=== PATIENT | male | born 1985 | race Caucasian/White ===

== ENCOUNTER 2017-01-26 08:53 | Outpatient (CLI) ==
[2013-01-31 22:28] VITALS: TEMP 97.8
[2016-02-19 08:32] VITALS: BMI 16.5
--- NOTE | 2017-01-26 09:43 | CT ---
EXAM: CT of the chest with IV contrast HISTORY: Abnormal chest x-ray COMPARISON: 01/20/2017 chest x-ray, 09/11/2013 CT, 05/17/2013 CT TECHNIQUE: CT of the chest with IV contrast FINDINGS: Multiple unchanged right lower lobe pulmonary nodules are again seen with the largest measuring 3 mm . There is an unchanged tiny right lower lobe posterior subpleural pulmonary nodule on axial image 2 4. A few unchanged probable perifissural lymph nodes are seen along the left major fissure. No new p ulmonary nodules are identified. No focal consolidation, pleural effusion or pneumothorax is seen. Heart size is normal. No mediastinal or hilar lymphadenopathy is seen. IMPRESSION: No acute cardiopulmonary findings. Stable subcentimeter pulmonary nodules.
== END 2017-01-26 08:54 | disposition home or self-care (01) ==
LOC: RAD 08:53
PROVIDERS: ATTEND Internal Medicine
DX: R93.8 Abnormal findings on diagnostic imaging of other specified body structures (principal)

== ENCOUNTER 2017-04-28 21:11 | Emergency (ER) ==
[2017-04-28 21:16] VITALS: BP 127/74; TEMP 99; BMI 16.9
[2017-04-28] MEDS ORDERED: TORADOL IM STA (21:54)
--- NOTE | 2017-04-28 21:54 | ED.PDOC ---
General ED Provider: Dr. KEMAR JONES Chief Complaint: Knee Pain/Injury Stated Complaint: Patient is a 31 year old male who states that he tripped on a seat belt of a car while in [place], he landed on the left knee since then has had severe pain with ambulation, or standing. Took OTC pain medications with no relief. Pain radiates to the lower thin and upper leg. Also has pain on the back of the knee. Time Seen by Physician: 21:20 Mode of Arrival: Walk-In Information Source: Patient Exam Limitations: No limitations Primary Care Provider: EBONY REMY Nursing and Triage Documentation Reviewed and Agree: Yes Musculoskeletal Complaint Exam - Knee Pain Complaint/Exam Mechanism of Injury: Reports: Trauma Onset/Duration: 1 day Symptoms Are: Still present Onset of Pain: Reports: Immediate Initial Severity: Moderate Current Severity: Severe Location: Reports: Discrete (left knee ) Character: Reports: Aching, Throbbing Alleviating: Reports: Rest Aggravating: Reports: Movement, Weight bearing, Prolonged standing, Stairs Associated Signs and Symptoms: Denies: Swelling, Redness, Bruising, Fever, Weakness, Numbness, Tingling Able to Bear Weight: Yes (but has alot of pain . ) Related History: Denies: Similar episode, Occupational injury Septic Arthritis Risk Factors: Reports: None Gout Risk Factors: Reports: None Related Surgical History: Reports: Left Knee Knee Findings: Present: Swelling, Tenderness, Limited range of motion, Effusion Tenderness: Present: Pre-patellar, Joint Fadia Test Positive: No Stephanie Test Positive: No Limited Range of Motion: Present: Active, Passive Knee Picture: 1 - tendeness to palpation Differential Diagnoses: Closed Fracture, Sprain, Strain Review of Systems - Review Of Systems Constitutional: Reports: No symptoms Eyes: Reports: No symptoms Ears, Nose, Mouth, Throat: Reports: No symptoms Respiratory: Reports: No symptoms Cardiac: Reports: No symptoms GI: Reports: No symptoms : Reports: No symptoms Musculoskeletal: Reports: Joint pain Skin: Reports: No symptoms Neurological: Reports: Anxiety Endocrine: Reports: No symptoms Hematologic/Lymphatic: Reports: No symptoms All Other Systems: Reviewed and Negative Past Medical History - Past Medical History Previously Healthy: Yes Endocrine: Reports: Unknown Cardiovascular: Reports: Unknown Respiratory: Reports: None Hematological: Reports: None Gastrointestinal: Reports: None Genitourinary: Reports: None Neuro/Psych: Reports: Seizure (not recently- prior visit=LAST ONE WEEK AGO([place] [employer]) AND TOURETTE SYNDROME) Musculoskeletal: Reports: None Cancer: Reports: None Other Pertinent Past Medical History: Epilepsy as a child, ADHD as a child - Surgical History General Surgical History: Reports: Other (sinus surgery in June 2015) - Family History Family History: Reports: None - Social History Smoking Status: Never smoker Hx Substance Use: Yes (marijuana) Alcohol Screening: Occasionally - Immunizations Tetanus Shot up to Date: Yes Physical Exam - Physical Exam Appearance: Thin Pain Distress: Severe Respiratory: Airway patent Cardiovascular: RRR Musculoskeletal: Limited ROM (left Knee) Skin: Warm, Dry, Normal color Neurological: Sensation intact, Cranial nerves intact, Alert, Oriented Psychiatric: Anxious Interpretation - Radiology Interpretation Radiology Interpretation By: ED Physician Radiology Results: Positive Exam Interpreted: Other (Non displaced fracture of the left patella) Critical Care Note - Critical Care Note Total Time (mins): 0 Course - Course Orders, Labs, Meds: Orders Category Date Time Status MIKE [ED MIKE WRAP] .ONCE EMERGENCY 04/28/17 21:27 Completed Ice [ED APPLY ICE AFFECTED AREA] .ONCE EMERGENCY 04/28/17 21:27 Active Immobilize [ED IMMOBILIZATION] .ONCE EMERGENCY 04/28/17 22:23 Active Hydrocodone Bit/Acetaminophen [[place] 7.5-325] MEDS 04/28/17 22:05 Discontinued 1 tab PO ONCE STA Ketorolac Tromethamine [Toradol] MEDS 04/28/17 21:54 Discontinued 60 mg IM ONCE STA KNEE, LEFT 4 VIEWS Stat RADS 04/28/17 21:26 Taken Medications Discontinued Medications Generic Name Dose Route Start Last Admin Trade Name Freq PRN Reason Stop Dose Admin Acetaminophen/Hydrocodone Bitart 1 tab 04/28/17 22:05 04/28/17 22:11 [place] 7.5-325 PO 04/28/17 22:06 1 tab ONCE STA Administration Ketorolac Tromethamine 60 mg 04/28/17 21:54 04/28/17 22:06 Toradol IM 04/28/17 21:55 60 mg ONCE STA Administration Vital Signs: Temp Pulse Resp BP Pulse Ox 04/28/17 21:11 99 F 78 20 127/74 98 Departure - Departure Time of Disposition: 22:05 Disposition: HOME SELF-CARE Discharge Problem: Injury of knee, Closed fracture of left patella Instructions: Patellar Fracture (ED) Condition: Fair Pt referred to PMD for follow-up: Yes Additional Instructions: Follow up with PCP for orthopedic referral or [facility] use knee immobilize as needed for comfort off work for 5 days Prescriptions: Hydrocodone/Acetaminophen [[place] 5-325 Tablet] 1 tab PO Q6HR PRN #20 tablet PRN Reason: PAIN Ibuprofen [Motrin] 600 mg PO Q6H PRN #30 tablet PRN Reason: Analgesia Allergies/Adverse Reactions: Allergies levetiracetam [From Keppra] Adverse Reaction (Severe, Verified 04/28/17 21:16) shuts organs down dextroamphetamine sulfate [From Dexedrine] Adverse Reaction (Mild, Verified 21:16) Rash Home Medications: Ambulatory Orders Gabapentin 600 mg PO TID 07/07/13 Phenytoin Sodium Extended [Dilantin] 4 tab PO DAILY 07/07/13 Methylphenidate HCl [Ritalin] 20 mg PO TID 01/25/15 Hydrocodone/Acetaminophen [[place] 5-325 Tablet] 1 tab PO Q6HR PRN #20 tablet Ibuprofen [Motrin] 600 mg PO Q6H PRN #30 tablet 04/28/17 Disposition Discussed With: Patient, Family
[2017-04-28] MEDS ORDERED: NORCO 7.5-325 PO STA ×2 (22:05→22:13)
[2017-04-28] MEDS ORDERED: MOTRIN PO STA (22:13)
--- NOTE | 2017-04-29 07:26 | DI ---
EXAM: Four views of the left knee. History: Left knee trauma. Findings: There is a nondisplaced fracture of the inferior patellar pole. No dislocation. Joint s paces are preserved. Impression: Nondisplaced fracture involving the inferior patellar pole.
== END 2017-04-28 22:37 | disposition home or self-care (01) ==
LOC: ED 21:11
DX: S82.002A Unspecified fracture of left patella, initial encounter for closed fracture (principal); W01.0XXA Fall on same level from slipping, tripping and stumbling without subsequent striking against object, initial encounter
CPT/HCPCS: 96372; 99283

== ENCOUNTER 2017-06-21 12:33 | Emergency (ER) ==
[2017-06-21 12:37] VITALS: BP 110/76; TEMP 98.4; BMI 15.5
--- NOTE | 2017-06-21 13:12 | DI ---
EXAM: Three views of the right ankle. History: Right ankle pain. Findings: No acute fracture or dislocation. No abnormal calcifications or radiopaque foreign bodies. Joint spaces are preserved. Impression: No acute osseous abnormality.
--- NOTE | 2017-06-21 13:15 | DI ---
EXAM: Three views of the right foot. History: Right foot pain. Findings / impression: Nondisplaced fracture at the base of the first metatarsal. No dislocation.
--- NOTE | 2017-06-21 13:43 | ED.PDOC ---
General ED Provider: Dr. MIKE COTO Chief Complaint: Foot Pain/Injury Stated Complaint: right foot pain Time Seen by Physician: 12:35 (injury to right foot blunt force trauma ) Mode of Arrival: Walk-In Information Source: Patient Exam Limitations: No limitations Nursing and Triage Documentation Reviewed and Agree: Yes Musculoskeletal Complaint Exam - Ankle/Foot Complaint/Exam Location of Injury: Reports: Right, Ankle, Foot Mechanism of Injury: Reports: Trauma (blunt) Onset/Duration: 1 day Symptoms Are: Reports: Still present Onset of Pain: Reports: Immediate Initial Severity: Moderate Current Severity: Moderate (base 1st metatarsal bone) Character: Reports: Dull, Aching Alleviating: Reports: Rest, Position Aggravating: Reports: Movement Able to Bear Weight: Yes Associated Signs and Symptoms: Denies: Swelling, Redness, Bruising, Fever, Weakness, Numbness, Tingling Gout Risk Factors: Reports: None Related Surgical History: Reports: None Achilles Tendon Abnormality: No Tenderness: Present: Midfoot Differential Diagnosis: Closed Fracture Review of Systems - Review Of Systems Constitutional: Reports: No symptoms Eyes: Reports: No symptoms Ears, Nose, Mouth, Throat: Reports: No symptoms Respiratory: Reports: No symptoms Cardiac: Reports: No symptoms GI: Reports: No symptoms : Reports: No symptoms Musculoskeletal: Reports: Joint pain Skin: Reports: No symptoms Neurological: Reports: No symptoms Endocrine: Reports: No symptoms Hematologic/Lymphatic: Reports: No symptoms All Other Systems: Reviewed and Negative Past Medical History - Past Medical History Previously Healthy: Yes Endocrine: Reports: Unknown Cardiovascular: Reports: Unknown Respiratory: Reports: None Hematological: Reports: None Gastrointestinal: Reports: None Genitourinary: Reports: None Neuro/Psych: Reports: Seizure (not recently- prior visit=LAST ONE WEEK AGO([place] [employer]) AND TOURETTE SYNDROME) Musculoskeletal: Reports: None Cancer: Reports: None Other Pertinent Past Medical History: Epilepsy as a child, ADHD as a child - Surgical History General Surgical History: Reports: Other (sinus surgery in June 2015) - Family History Family History: Reports: None - Social History Smoking Status: Never smoker Hx Substance Use: Yes (marijuana) Alcohol Screening: Occasionally Physical Exam - Physical Exam Appearance: Well-appearing, No pain distress, Well-nourished Eyes: JANET, EOMI, Conjunctiva clear ENT: Ears normal, Nose normal, Oropharynx normal Respiratory: Airway patent, Breath sounds clear, Breath sounds equal, Respirations nonlabored Cardiovascular: RRR, Pulses normal, No rub, No murmur GI/: Soft, Nontender, No masses, Bowel sounds normal, No Organomegaly Musculoskeletal: Limited ROM (first metatarsal bone) Skin: Warm, Dry, Normal color Neurological: Sensation intact, Motor intact, Reflexes intact, Cranial nerves intact, Alert, Oriented Psychiatric: Affect appropriate, Mood appropriate Interpretation - Radiology Interpretation Radiology Interpretation By: Radiologist Radiology Results: Positive (fractured foot) Critical Care Note - Critical Care Note Total Time (mins): 0 Course - Course Orders, Labs, Meds: Orders Category Date Time Status ANKLE, RIGHT MIN 3 VIEWS Stat RADS 06/21/17 12:46 Ordered FOOT, RIGHT 3 VIEWS Stat RADS 06/21/17 12:45 Ordered Vital Signs: Temp Pulse Resp BP Pulse Ox 06/21/17 12:34 98.4 F 92 H 20 110/76 95 Departure - Departure Time of Disposition: 13:43 Disposition: HOME SELF-CARE Discharge Problem: Foot fracture, right Qualifiers: Encounter type: initial encounter Fracture type: closed Qualified Code(s): S92.901A - Unspecified fracture of right foot, initial encounter for closed fracture Instructions: Foot Sprain (ED) Condition: Good Pt referred to PMD for follow-up: Yes Allergies/Adverse Reactions: Allergies levetiracetam [From Keppra] Adverse Reaction (Severe, Verified 06/21/17 12:37) shuts organs down dextroamphetamine sulfate [From Dexedrine] Adverse Reaction (Mild, Verified 12:37) Rash Home Medications: Ambulatory Orders Gabapentin 600 mg PO TID 07/07/13 Phenytoin Sodium Extended [Dilantin] 4 tab PO DAILY 07/07/13 Methylphenidate HCl [Ritalin] 20 mg PO TID 01/25/15 Ibuprofen [Motrin] 600 mg PO Q6H PRN #30 tablet 04/28/17
== END 2017-06-21 14:15 | disposition home or self-care (01) ==
LOC: ED 12:33
DX: S92.901A Unspecified fracture of right foot, initial encounter for closed fracture (principal); W22.8XXA Striking against or struck by other objects, initial encounter
CPT/HCPCS: 99283

== ENCOUNTER 2017-07-17 09:38 | Emergency (ER) ==
[2017-07-17 09:43] VITALS: BP 119/77; TEMP 96; BMI 16.4
[2017-07-17] MEDS ORDERED: ZOFRAN 4 MG/2 ML IVP STA ×2 (09:59→11:15)
[2017-07-17] MEDS ORDERED: TORADOL IVP STA ×2 (09:59→13:13)
[2017-07-17] MEDS ORDERED: SODIUM CHLORIDE 1,000 ML IV STA ×2 (09:59→13:04)
--- NOTE | 2017-07-17 10:00 | ED.PDOC ---
General ED Provider: Dr. KEMAR JONES Chief Complaint: Weakness Stated Complaint: patient complains of back pain that started suddenly this morning on the left side radiating to the flank and mid abdomen. Denies any Trauma. Time Seen by Physician: 09:50 Mode of Arrival: Walk-In Information Source: Patient Exam Limitations: No limitations Nursing and Triage Documentation Reviewed and Agree: Yes Musculoskeletal Complaint Exam - Back Pain Complaint/Exam Mechanism of Injury: Reports: No known trauma Onset/Duration: 6 hours Symptoms Are: Still present Timing: Constant Initial Severity: Moderate Current Severity: Severe Location: Reports: Radiating (to the abdomen and left flank ) Character: Reports: Sharp, Aching Aggravating: Reports: Movements, Bending Alleviating: Reports: None Associated Signs and Symptoms: Reports: Weakness (generalized ). Denies: Swelling, Redness, Bruising, Fever, Numbness, Tingling, Abdominal pain, Flank pain, Bladder incontinence, Bowel incontinence, Weight loss, Pain with weight bearing TAD Risk Factors: Reports: None AAA Risk Factors: Reports: None Cauda Equina Risk Factors: Reports: None Epidural Abcess Risk Factors: Reports: None Related Surgical History: Reports: None Focal Tenderness: Yes (left mid back ) Paraspinal Muscle Tenderness: No Paraspinal Muscle Spasm: No Scoliosis: No Lordosis: No Kyphosis: No SLR Test: Right Negative, Left Negative Hip Motion Testing Pain: Right Negative, Left Negative Focal Weakness: Present: None Focal Sensory Loss: Present: None Gait: Present: Normal Back Picture: 1 - tenderness to palpation Differential Diagnoses: Strain, Sprain, Other (pneumothorax, Rib fracture ) Review of Systems - Review Of Systems Constitutional: Reports: No symptoms Eyes: Reports: No symptoms Ears, Nose, Mouth, Throat: Reports: No symptoms Cardiac: Reports: No symptoms GI: Reports: Abdominal pain Musculoskeletal: Reports: Back pain Neurological: Reports: Anxiety Endocrine: Reports: No symptoms All Other Systems: Reviewed and Negative Past Medical History - Past Medical History Previously Healthy: Yes Endocrine: Reports: Unknown Cardiovascular: Reports: Unknown Respiratory: Reports: None Hematological: Reports: None Gastrointestinal: Reports: None Genitourinary: Reports: None Neuro/Psych: Reports: Seizure (not recently- prior visit=LAST ONE WEEK AGO([place] [employer] [employer]) AND TOURETTE SYNDROME) Musculoskeletal: Reports: None Cancer: Reports: None Other Pertinent Past Medical History: Epilepsy as a child, ADHD as a child, Torretes - Surgical History General Surgical History: Reports: Other (sinus surgery in June 2015) - Family History Family History: Reports: None - Social History Smoking Status: Never smoker Hx Substance Use: Yes (marijuana) Alcohol Screening: Occasionally - Immunizations Tetanus Shot up to Date: No Physical Exam - Physical Exam Appearance: Ill-appearing, Thin Ill-appearing: Moderate Pain Distress: Severe Eyes: JANET, EOMI, Conjunctiva clear Neck: Supple Respiratory: Airway patent, Breath sounds clear, Breath sounds equal, Respirations nonlabored Cardiovascular: RRR, Pulses normal, No rub, No murmur GI/: Soft, Nontender, No masses Musculoskeletal: Normal strength, ROM intact Skin: Warm, Dry Psychiatric: Anxious Physician Notification - Case Discussed Physician Notified: Dr. Cobian Time of Notification: 13:10 ([facility] to follow up on wednesday. Stone should pass) Critical Care Note - Critical Care Note Total Time (mins): 0 Course - Course Hematology/Chemistry: 07/17/17 10:11 07/17/17 10:11 Orders, Labs, Meds: Lab Review 07/17/17 07/17/17 07/17/17 10:11 10:11 11:15 WBC 11.91 H RBC 4.89 Hgb 15.4 Hct 42.0 MCV 85.9 MCH 31.5 H MCHC 36.7 H RDW Coeff of Kelsy 12.7 Plt Count 321 Immature Gran % (Auto) 0.6 Neut % (Auto) 78.2 Lymph % (Auto) 12.0 Coke % (Auto) 7.8 Eos % (Auto) 1.0 Baso % (Auto) 0.4 Immature Gran # (Auto) 0.1 Neut # 9.3 H Lymph # 1.4 Coke # 0.9 Eos # 0.1 Baso # 0.1 Sodium 140 Potassium 3.5 Chloride 105 Carbon Dioxide 22 Anion Gap 16.5 BUN 8 Creatinine 0.88 Estimated GFR (MDRD) 102.00 BUN/Creatinine Ratio 9.09 Glucose 114 H Calcium 9.8 Total Bilirubin 0.51 AST 15 ALT 11 L Alkaline Phosphatase 85 Total Protein 7.7 Albumin 4.0 Globulin 3.7 Albumin/Globulin Ratio 1.08 Amylase 21 L Lipase 7 L Urine Color Dark Urine Clarity Slightly Urine pH 8.5 Ur Specific Howe 1.020 Urine Protein 1+ Urine Glucose (UA) Negative Urine Ketones 2+ Urine Blood Trace-intact Urine Nitrite Negative Urine Bilirubin 1+ Urine Urobilinogen 4.0 Ur Leukocyte Esterase 3+ Urine Microscopic RBC 5-10 Urine Microscopic WBC 20-30 Ur Squamous Epith Cells Not Reportable Amorphous Sediment 1+ Urine Bacteria 1+ Urine Mucus 1+ Orders Category Date Time Status ED IV/MEDIPORT/POWERPORT .ONCE EMERGENCY 07/17/17 09:59 Active AMYLASE Stat LAB 07/17/17 10:11 Completed CBC W/ AUTO DIFF Stat LAB 07/17/17 10:11 Completed COMPREHENSIVE METABOLIC PANEL Stat LAB 07/17/17 10:11 Completed LIPASE Stat LAB 07/17/17 10:11 Completed URINALYSIS C & S IF INDICATED Stat LAB 07/17/17 11:15 Completed URINE CULTURE Stat LAB 07/17/17 11:33 Received 0.9 % Sodium Chloride [Saline Flush] MEDS 07/17/17 09:59 Active 1 syr IVF PRN PRN Hydromorphone HCl [Dilaudid 1 mg/ml Syringe] MEDS 07/17/17 11:15 Discontinued 0.5 mg IVP ONCE STA Hydromorphone HCl [Dilaudid 1 mg/ml Syringe] MEDS 07/17/17 13:04 Discontinued 1 mg IVP ONCE STA Ketorolac Tromethamine [Toradol] MEDS 07/17/17 09:59 Discontinued 30 mg IVP ONCE STA Ketorolac Tromethamine [Toradol] MEDS 07/17/17 13:13 Discontinued 30 mg IVP ONCE STA Levofloxacin/D5w [Levaquin] 100 ml MEDS 07/17/17 11:41 Discontinued IV .STK-MED Levofloxacin/D5w [Levaquin] 500 mg MEDS 07/17/17 11:38 Discontinued Premix 100 ml D5w 1 bag IV ONCE Ondansetron HCl/Pf [Zofran 4 mg/2 ml] MEDS 07/17/17 09:59 Discontinued 4 mg IVP ONCE STA Ondansetron HCl/Pf [Zofran 4 mg/2 ml] MEDS 07/17/17 11:15 Discontinued 4 mg IVP ONCE STA Sodium Chloride 0.9% [Sodium Chloride] 1,000 ml MEDS 07/17/17 09:59 Discontinued IV BOLUS Sodium Chloride 0.9% [Sodium Chloride] 1,000 ml MEDS 07/17/17 13:04 Active IV BOLUS Tamsulosin HCl [Flomax] MEDS 07/17/17 11:15 Discontinued 0.8 mg PO ONCE STA CT ABDOMEN/PELVIS WO CONTRAST Stat RADS 07/17/17 09:[address] CHEST W/O CONTRAST Stat RADS 07/17/17 09:58 Completed Medications Generic Name Dose Route Start Last Admin Trade Name Freq PRN Reason Stop Dose Admin Sodium Chloride 1,000 mls @ 1,000 mls/hr 07/17/17 13:04 Sodium Chloride IV 07/17/17 14:03 BOLUS STA Sodium Chloride 1 syr 07/17/17 09:59 07/17/17 10:11 Saline Flush IVF 1 syr PRN PRN Administration To flush IV Discontinued Medications Generic Name Dose Route Start Last Admin Trade Name Freq PRN Reason Stop Dose Admin Hydromorphone HCl 0.5 mg 07/17/17 11:15 07/17/17 11:27 Dilaudid 1 Mg/Ml Syringe IVP 07/17/17 11:16 0.5 mg ONCE STA Administration Hydromorphone HCl 1 mg 07/17/17 13:04 Dilaudid 1 Mg/Ml Syringe IVP 07/17/17 13:05 ONCE STA Sodium Chloride 1,000 mls @ 1,000 mls/hr 07/17/17 09:59 07/17/17 10:44 Sodium Chloride IV 07/17/17 10:58 1,000 mls/hr BOLUS STA Administration Levofloxacin/Dextrose 500 mg/ 100 mls @ 100 mls/hr 07/17/17 11:38 07/17/17 11 :47 Dextrose IV 07/17/17 12:37 100 mls/hr ONCE STA Administration Ketorolac Tromethamine 30 mg 07/17/17 09:59 07/17/17 10:11 Toradol IVP 07/17/17 10:00 30 mg ONCE STA Administration Ketorolac Tromethamine 30 mg 07/17/17 13:13 Toradol IVP 07/17/17 13:14 ONCE STA Ondansetron HCl 4 mg 07/17/17 09:59 07/17/17 10:11 Zofran 4 Mg/2 Ml IVP 07/17/17 10:00 4 mg ONCE STA Administration Ondansetron HCl 4 mg 07/17/17 11:15 07/17/17 11:27 Zofran 4 Mg/2 Ml IVP 07/17/17 11:16 4 mg ONCE STA Administration Tamsulosin HCl 0.8 mg 07/17/17 11:15 07/17/17 11:27 Flomax PO 07/17/17 11:16 0.8 mg ONCE STA Administration Vital Signs: Temp Pulse Resp BP Pulse Ox 07/17/17 09:39 96.0 F L 56 L 22 119/77 99 Departure - Departure Time of Disposition: 13:21 Disposition: AMA Discharge Problem: Renal calculus, left Urinary tract infection Qualifiers: Urinary tract infection type: acute cystitis Hematuria presence: with hematuria Qualified Code(s): N30.01 - Acute cystitis with hematuria Instructions: Kidney Stones (ED), Urinary Tract Infection in Men (ED) Condition: Fair Pt referred to PMD for follow-up: Yes Additional Instructions: Take medications as prescribed Follow up with Urology in [address] Cobian in [place] to get an APt. Strain your urine Return if worse Prescriptions: Hydrocodone/Acetaminophen [[place] 5-325 Tablet] 1 tab PO Q6HR PRN #20 tablet PRN Reason: PAIN Levofloxacin [Levaquin] 500 mg PO DAILY #10 tablet Tamsulosin HCl [Flomax] 0.4 mg PO DAILY #10 cap.er.24h Allergies/Adverse Reactions: Allergies levetiracetam [From Keppra] Adverse Reaction (Severe, Verified 06/21/17 12:37) shuts organs down dextroamphetamine sulfate [From Dexedrine] Adverse Reaction (Mild, Verified 12:37) Rash Home Medications: Ambulatory Orders Gabapentin 600 mg PO TID 07/07/13 Phenytoin Sodium Extended [Dilantin] 4 tab PO DAILY 07/07/13 Methylphenidate HCl [Ritalin] 20 mg PO TID 01/25/15 Hydrocodone/Acetaminophen [[place] 5-325 Tablet] 1 tab PO Q6HR PRN #20 tablet Levofloxacin [Levaquin] 500 mg PO DAILY #10 tablet 07/17/17 Tamsulosin HCl [Flomax] 0.4 mg PO DAILY #10 cap.er.24h 07/17/17 Disposition Discussed With: Patient, Family
[2017-07-17 10:16] LABS: BASOPHILS # (AUTO) 0.1 K/uL (0-0.2); BASOPHILS % (AUTO) 0.4 % (0.0-3.0); EOSINOPHILS # (AUTO) 0.1 K/ul (0.0-0.7); HEMOGLOBIN 15.4 g/dl (14.0-18.0); IMMATURE GRANULOCYTE % (AUTO) 0.6 % (0.0-5.0); LYMPHOCYTES # (AUTO) 1.4 K/uL (0.60-3.4); MEAN CORPUSCULAR HEMOGLOBIN 31.5 pg (27.0-31.0); MEAN CORPUSCULAR HGB CONC 36.7 (31.8-35.4); MEAN CORPUSCULAR VOLUME 85.9 fl (80.0-94.0); MONOCYTES # (AUTO) 0.9 K/uL (0.4-2.0); MONOCYTES % (AUTO) 7.8 (0-10); NEUTROPHILS # (AUTO) 9.3 K/ul (2.0-6.9); NEUTROPHILS % (AUTO) 78.2; PLATELET COUNT 321 10^3/uL (140-440); RED BLOOD COUNT 4.89 10^6/ul (4.70-6.10); WHITE BLOOD COUNT 11.91 K/ul (4.2-10.2)
[2017-07-17 10:36] LABS: ALBUMIN/GLOBULIN RATIO 1.08; ANION GAP 16.5; BILIRUBIN,TOTAL 0.51 mg/dL (0.00-1.20); BUN/CREATININE RATIO 9.09; CALCIUM 9.8 mg/dL (8.2-10.2); CREATININE 0.88 mg/dL (0.60-1.10); POTASSIUM 3.5 mmol/L (3.5-5.1); TOTAL PROTEIN 7.7 g/dL (6.4-8.2)
--- NOTE | 2017-07-17 10:41 | CT ---
EXAM: CT scan of the abdomen and pelvis without contrast HISTORY: Left back and left flank pain TECHNIQUE: Imaging of the abdomen and pelvis was performed without contrast. 3 mm thin axial images and coronal and sagittal reconstructions were provided for interpretation. Comparison CT scan of the abdomen and pelvis dated 02/19/2016. FINDINGS: The liver, spleen, pancreas, adrenal glands appear normal. There is mild to moderate dila tation of the calyces of the left kidney and left renal pelvis and dilatation of the left ureter. Th ere is a distal left ureteral calculus seen on axial image #125. Lesion measures 2.9 mm AP, 2.3 mm t ransverse,, 1.8 mm in height. The lesion is located just proximal to the ureteral vesicle junction. Small nonobstructing calculi are seen within the calyces of the right kidney. The small and large bowel loops caliber. There is no free air. No retroperitoneal abnormalities are seen. The appendix is normal. No definite inflammatory changes are seen in the right lower quadrant . There is no free fluid. Lung bases are clear. No lytic or blastic lesions are seen within the osse ous structures. IMPRESSION: There is a distal left ureteral calculus measuring up to 2.9 mm AP causing mild to moder ate hydronephrosis of the left kidney. Nonobstructing nephrolithiasis seen within the right kidney. There is no bowel obstruction.
--- NOTE | 2017-07-17 10:42 | CT ---
Exam: CT thorax without IV contrast. Clinical indication: Left back pain radiating to flank and abdomen. TECHNIQUE: Axial unenhanced CT images of the thorax were obtained followed by coronal and sagittal r eformats. Findings: The thoracic spine alignment is within normal limits. There are no thoracic vertebral body fractures . The visualized ribs are intact. The visualized bony structures are unremarkable. The pulmonary parenchyma is clear. There is no pleural abnormality. There are no enlarged axillary, hilar or mediastinal lymph nodes, by size criteria. The visualized portions of the upper abdomen demonstrate mild left-sided hydronephrosis. Impression: 1. Mild left-sided hydronephrosis, likely due to distal ureteric obstructing calculus seen on the CT of the abdomen. 2. Otherwise unremarkable CT of the thorax.
[2017-07-17] MEDS ORDERED: DILAUDID 1 MG/ML SYRINGE IVP STA ×2 (11:15→13:04)
[2017-07-17] MEDS ORDERED: FLOMAX PO STA (11:15)
[2017-07-17 11:27] LABS: BILIRUBIN,URINE 1+ (NEGATIVE); KETONES,URINE 2+ (NEGATIVE); LEUKOCYTE ESTERASE ,URINE 3+ (NEGATIVE); NITRITE,URINE Negative (NEGATIVE); PH,URINE 8.5 (5-9); PROTEIN,URINE 1+ (NEGATIVE); URINE, BLOOD Trace-intact (NEGATIVE)
[2017-07-17 11:29] LABS: ADD URINE MICROSCOPIC YES
[2017-07-17 11:32] LABS: BACTERIA,URINE 1+ (NOT PRESENT)
[2017-07-17] MEDS ORDERED: LEVAQUIN 500 MG in PREMIX 100 ML D5W 1 BAG IV STA (11:38)
[2017-07-17] MEDS ORDERED: LEVAQUIN 100 ML IV ONE (11:41)
== END 2017-07-17 13:27 | disposition left against medical advice (07) ==
LOC: ED 09:38
DX: N30.01 Acute cystitis with hematuria (principal); N20.0 Calculus of kidney
CPT/HCPCS: 36415; 80053; 81001; 82150; 83690; 85025; 87086; 96361; 96365; 96375; 99285

== ENCOUNTER 2017-08-25 23:10 | Outpatient (CLI) ==
[2013-01-31 22:28] VITALS: TEMP 97.8
== END 2017-08-25 23:11 | disposition home or self-care (01) ==
LOC: AMBL 23:10
PROVIDERS: ATTEND Emergency Medicine
DX: S01.01XA Laceration without foreign body of scalp, initial encounter (principal); Y00.XXXA Assault by blunt object, initial encounter

== ENCOUNTER 2017-09-19 12:23 | Outpatient (CLI) ==
[2013-01-31 22:28] VITALS: TEMP 97.8
== END 2017-09-19 12:24 | disposition short-term general hospital (02) ==
LOC: AMBL 12:23
PROVIDERS: ATTEND Family Medicine
DX: R10.9 Unspecified abdominal pain (principal); R53.1 Weakness; R11.0 Nausea; R00.1 Bradycardia, unspecified; Z87.442 Personal history of urinary calculi

== ENCOUNTER 2018-01-13 12:37 | Outpatient (CLI) ==
[2013-01-31 22:28] VITALS: TEMP 97.8
== END 2018-01-13 12:38 | disposition home or self-care (01) ==
LOC: RHC-LAB 12:37
PROVIDERS: ATTEND Emergency Medicine
DX: R56.9 Unspecified convulsions (principal)
CPT/HCPCS: 36415; 80185; 85025

== ENCOUNTER 2018-02-01 10:26 | Outpatient (CLI) ==
[2013-01-31 22:28] VITALS: TEMP 97.8
== END 2018-02-01 10:27 | disposition home or self-care (01) ==
LOC: RHC-LAB 10:26
PROVIDERS: ATTEND Emergency Medicine
DX: R56.9 Unspecified convulsions (principal)
CPT/HCPCS: 36415; 80185

== ENCOUNTER 2018-09-01 11:58 | Outpatient (CLI) ==
[2013-01-31 22:28] VITALS: TEMP 97.8
== END 2018-09-01 11:59 | disposition home or self-care (01) ==
LOC: LAB 11:58
PROVIDERS: ATTEND Family Medicine
DX: R56.9 Unspecified convulsions (principal)
CPT/HCPCS: 36415; 80185

== ENCOUNTER 2018-09-25 09:45 | Emergency (ER) | payer OTHER ==
[2018-09-25 09:48] VITALS: BP 128/97; TEMP 98.5; BMI 21.9
--- NOTE | 2018-09-25 10:03 | ED.PDOC ---
General ED Provider: Dr. JONATHON GOMEZ-ER Chief Complaint: Hand Pain/Injury Stated Complaint: i punched a wall last week Time Seen by Physician: 10:01 Mode of Arrival: Walk-In Information Source: Patient Exam Limitations: No limitations Primary Care Provider: WALDO SCALES Nursing and Triage Documentation Reviewed and Agree: Yes Does patient meet sepsis criteria?: No System Inflammatory Response Syndrome: Not Applicable Sepsis Protocol: For patient's 13 years and over: Temp is 96.8 and below OR 101 and greater Pulse >90 BPM Resp >20/minute Acutely Altered Mental Status Are patient's symptoms suggestive of a new infection, such as: -Pneumonia -Skin, Soft Tissue -Endocarditis -UTI -Bone, Joint Infection -Implantable Device -Acute Abdominal Infection -Wound Infection -Meningitis -Blood Stream Catheter Infection -Unknown Trauma/Injury Complaint Exam - Trauma Complaint/Exam Location of Pain or Injury: Reports: RUE Mechanism of Injury: Reports: Direct blow Onset/Duration: one week Symptoms Are: Still present Initial Severity: Mild Current Severity: Mild Character: Reports: Aching Aggravating: Reports: Movement Alleviating: Reports: None Associated Signs and Symptoms: Reports: Extremity disuse Compartment Syndrome Risk Factors: Present: Pain Skin Findings: Present: Tenderness Review of Systems - Review Of Systems Constitutional: Reports: No symptoms Eyes: Reports: No symptoms Ears, Nose, Mouth, Throat: Reports: No symptoms Respiratory: Reports: No symptoms Cardiac: Reports: No symptoms GI: Reports: No symptoms : Reports: No symptoms Musculoskeletal: Reports: Muscle pain Skin: Reports: No symptoms Neurological: Reports: No symptoms Endocrine: Reports: No symptoms Hematologic/Lymphatic: Reports: No symptoms All Other Systems: Reviewed and Negative Past Medical History - Past Medical History Previously Healthy: Yes Endocrine: Reports: Unknown Cardiovascular: Reports: Unknown Respiratory: Reports: None Hematological: Reports: None Gastrointestinal: Reports: None Genitourinary: Reports: None Neuro/Psych: Reports: Seizure (not recently- prior visit=LAST ONE WEEK AGO([place] [facility]) AND TOURETTE SYNDROME) Musculoskeletal: Reports: None Cancer: Reports: None Other Pertinent Past Medical History: Epilepsy as a child, ADHD as a child, Torretes - Surgical History General Surgical History: Reports: Other (sinus surgery in June 2015) - Family History Family History: Reports: None - Social History Smoking Status: Never smoker Hx Substance Use: Yes (marijuana) Alcohol Screening: Occasionally Physical Exam - Physical Exam Appearance: Well-appearing, No pain distress, Well-nourished Pain Distress: Mild Eyes: JANET, EOMI, Conjunctiva clear ENT: Ears normal, Nose normal, Oropharynx normal Neck: Supple Respiratory: Airway patent, Breath sounds clear, Breath sounds equal, Respirations nonlabored Cardiovascular: RRR GI/: Soft Musculoskeletal: Limited ROM Skin: Warm, Dry, Normal color Neurological: Sensation intact, Motor intact, Reflexes intact, Cranial nerves intact, Alert, Oriented Psychiatric: Affect appropriate, Mood appropriate Interpretation - Radiology Interpretation Radiology Interpretation By: Radiologist Radiology Results: Negative Critical Care Note - Critical Care Note Total Time (mins): 0 Course - Course Orders, Labs, Meds: Orders Category Date Time Status HAND, RIGHT 3 VIEWS Stat RADS 09/25/18 09:49 Completed Vital Signs: Temp Pulse Resp BP Pulse Ox 09/25/18 09:46 98.5 F 78 18 128/97 H 100 Departure - Departure Time of Disposition: 10:12 Disposition: HOME SELF-CARE Discharge Problem: Injury of hand Instructions: Hand Sprain (ED) Condition: Good Pt referred to PMD for follow-up: No IPMP verified?: No Additional Instructions: tylenol for discomfort--return prn Allergies/Adverse Reactions: Allergies levetiracetam [From Keppra] Adverse Reaction (Severe, Verified 09/25/18 09:48) shuts organs down dextroamphetamine sulfate [From Dexedrine] Adverse Reaction (Mild, Verified 09:48) Rash Home Medications: Ambulatory Orders Gabapentin 600 mg PO TID 07/07/13 Phenytoin Sodium Extended [Dilantin] 300 mg PO DAILY 01/13/18 Disposition Discussed With: Patient
--- NOTE | 2018-09-25 10:11 | DI ---
EXAM: Right hand; PA, lateral, and oblique views HISTORY: Trauma, struck wall with closed fist COMPARSION: 01/25/2015 FINDINGS: There is no acute fracture or dislocation. A small ossicle at the dorsal carpus is again s een measuring 4 mm. Joint spaces and alignment are maintained. Soft tissues are unremarkable. OPINION: No acute osseous abnormality of the hand. Unchanged small ossicle at the dorsal carpus. This can be related to old injury or accessory ossicle .
== END 2018-09-25 10:23 | disposition home or self-care (01) ==
LOC: ED 09:45
DX: S69.91XA Unspecified injury of right wrist, hand and finger(s), initial encounter (principal); W22.8XXA Striking against or struck by other objects, initial encounter
CPT/HCPCS: 99283